=== PATIENT | male | born 1960 | race Caucasian/White ===

== ENCOUNTER 2020-08-19 20:31 | Emergency (ER) | payer BC ==
[~2020-08-19] VITALS: Ht 193 cm; Wt 102.0 kg
--- NOTE | 2020-08-19 20:35 | NUR ---
Pt assisted into gown, shoe and sock off R foot for exam and RN and MD assessments completed.
--- NOTE | 2020-08-19 20:50 | NUR ---
Xray at bedside for films as ordered.
[2020-08-19] MEDS ORDERED: HYDROmorphone 1 MG/ML, 1ML INJ IM ONE (21:00)
[2020-08-19] MEDS ORDERED: HYDROmorphone 1 MG/ML, 1ML INJ ONE (21:00)
[2020-08-19] MEDS ORDERED: PLEASE ENTER ALLERGIES MC SCH (21:00)
--- NOTE | 2020-08-19 21:05 | NUR ---
Pt medicated for pain at this time.
--- NOTE | 2020-08-19 21:22 | NUR ---
at bedside for further exam.
[2020-08-19 22:16] VITALS: BP 111/65
== END 2020-08-19 22:18 | disposition home or self-care (01) ==
LOC: ED 22:00
DX: S90.31XA Contusion of right foot, initial encounter (principal); I48.91 Unspecified atrial fibrillation; Z88.6 Allergy status to analgesic agent; Z88.8 Allergy status to other drugs, medicaments and biological substances; W18.30XA Fall on same level, unspecified, initial encounter; Y93.89 Activity, other specified; Y92.89 Other specified places as the place of occurrence of the external cause; Y99.8 Other external cause status
CPT/HCPCS: 73630; 96372; 99283; J1170

== ENCOUNTER 2020-09-10 14:29 | Emergency (ER) | payer BC ==
[~2020-09-10] VITALS: Ht 193 cm; Wt 98.9 kg
--- NOTE | 2020-09-10 15:17 | NUR ---
patient arrives with chest pain that is shooting sharp in nature started a few days ago. patient reports some sob. and patient has painful urination.
[2020-09-10] MEDS ORDERED: METOPROLOL 1 MG/ML, 5ML IVPush ONE (15:30)
[2020-09-10 15:51] LABS: BASOPHILS % (AUTO) 1 % (0-1); EOSINOPHILS % (AUTO) 0 % (1-7); LYMPHOCYTES % (AUTO) 37 % (22-44); MEAN CORPUSCULAR HEMOGLOBIN 24.7 pg (27.5-34.5); MEAN CORPUSCULAR HGB CONC 30.9 g/dL (33.2-36.2); MEAN PLATELET VOLUME 6.8 fL (7.4-10.4); MONOCYTES % (AUTO) 10 % (2-9); NEUTROPHILS % (AUTO) 52 % (42-75); PLATELET COUNT 364 x10^3/uL (130-400); RED BLOOD COUNT 4.38 x10^6/uL (4.38-5.82); RED CELL DISTRIBUTION WIDTH 21.2 % (9.4-14.8)
[2020-09-10] MEDS ORDERED: METOPROLOL 1 MG/ML, 5ML ONE (15:54)
[2020-09-10 15:58] LABS: MD NO
[2020-09-10] MEDS: MORPHINE SULFATE 4 MG/ML, 1ML IVPush PRN ×3 (16:01→17:00)
--- NOTE | 2020-09-10 16:02 | NUR ---
PATIENT REFUSED MORPHINE, WANTS DILAUDID. LET KNOW
[2020-09-10 16:03] LABS: ALANINE AMINOTRANSFERASE 39 U/L (12-78); ALBUMIN 3.5 g/dL (3.4-5.0); ANION GAP 8 mmol/L (5-15); CALCIUM 8.4 mg/dL (8.5-10.1); CHLORIDE 112 mmol/L (98-107); CREATININE 0.81 mg/dL (0.7-1.3)
[2020-09-10 16:03] LABS: MICROSCOPIC INDICATED
--- NOTE | 2020-09-10 16:11 | NUR ---
when patient told md gonzales order dilaudid, patient then wanted morphine
[2020-09-10] MEDS ORDERED: MORPHINE SULFATE 4 MG/ML, 1ML ONE ×2 (16:12→17:01)
[2020-09-10 16:21] LABS: ALKALINE PHOSPHATASE 138 U/L (45-117); BILIRUBIN,TOTAL 0.2 mg/dL (0.2-1.0); TROPONIN I < 0.015 ng/mL (0.000-0.045)
--- NOTE | 2020-09-10 16:59 | NUR ---
back from ct. still in pain.
[2020-09-10] MEDS ORDERED: OMNIPAQUE 350 MG/ML, 75ML BOTTLE ONE (17:00)
[2020-09-10 17:36] VITALS: BP 135/78
--- NOTE | 2020-09-10 17:49 | NUR ---
EMPLOYMENT ATTORNEY: V/O RECEIVED TO DISCHARGE PT
== END 2020-09-10 17:55 | disposition home or self-care (01) ==
LOC: ED 17:44
DX: R07.89 Other chest pain (principal); R30.0 Dysuria; I26.99 Other pulmonary embolism without acute cor pulmonale; M79.89 Other specified soft tissue disorders; R42 Dizziness and giddiness; I48.91 Unspecified atrial fibrillation
CPT/HCPCS: 36415; 71045; 71275; 80053; 81001; 83880; 84484; 85025; 85379; 93005; 96374; 96375; 96376; 99285; J2270; Q9967